=== PATIENT | female | born 1970 | race Caucasian/White ===

== ENCOUNTER → 2018-12-28 12:16 | Outpatient (CLI) | payer OTHER, SELFPAY ==
[2018-12-28 12:50] LABS: Add Manual Diff / Slide Review NO; Basophils Absolute Auto 100 /uL (0-100); Basophils Percent Auto 1.3 % (0-2); Eosinophils Absolute Auto 200 /uL (0-450); Eosinophils Percent Auto 3.5 % (2-4); Hematocrit 35.1 % (36-46); Hemoglobin 10.8 g/dL (12.0-16.0); Lymphocytes Absolute Auto 2100 /uL (1100-4500); Lymphocytes Percent Auto 33.3 % (25-40); Mean Corpuscular HGB Conc 30.8 % (30-36); Mean Corpuscular Hemoglobin 23.1 PG (26-34); Monocytes Absolute Auto 500 /uL (0-900); Monocytes Percent Auto 7.7 % (3-14); Neutrophils Absolute Auto 3500 /uL (1500-7000); Neutrophils Percent Auto 54.2 % (50-75); Platelet Count 350 X10^3/uL (150-400); Red Blood Cell Count 4.69 X10^6/uL (4.0-5.2); Red Cell Distribution Width 15.4 % (11.6-14.8); White Blood Cell Count 6.4 X10^3/uL (4.5-11.0)
[2018-12-28 13:42] LABS: Alanine Aminotransferase 12 IU/L (9-52); Albumin 4.4 g/dL (3.5-5.0); Albumin Globulin Ratio 1.3 (1.0-2.8); Alkaline Phosphatase 76 U/L (38-126); Aspartate Aminotransferase 21 IU/L (14-36); Bilirubin Total 0.4 mg/dL (0.2-1.3); Blood Urea Nitrogen 14 mg/dL (7-17); Carbon Dioxide 27 mmol/L (22-32); Chloride 104 mmol/L (98-107); Cholesterol 188 mg/dL (140-199); Estimated Glomerular Filt Rate > 60.0 mL/min (>60); Globulin 3.5 g/dL (1.7-4.1); Glucose 91 mg/dL (70-100); HDL Cholesterol 41 mg/dL (40-60); HEMOLYSIS < 15 (0-50); LDL Cholesterol Calculated 113 mg/dL (<100); Potassium 4.6 mmol/L (3.4-5.1); Sodium 141 mmol/L (137-145); Total Protein 7.9 g/dL (6.3-8.2); Triglycerides 172 mg/dL (35-150)
[2018-12-28 13:59] LABS: TSH w/ Reflex to FT4 0.66 uIU/mL (0.47-4.68)
== END ==
PROVIDERS: PCP Family Medicine; Visit Provider Family Medicine
DX: Z00.00 Encounter for general adult medical examination without abnormal findings (principal); Z13.220 Encounter for screening for lipoid disorders; Z13.29 Encounter for screening for other suspected endocrine disorder; Z13.6 Encounter for screening for cardiovascular disorders
CPT/HCPCS: 36415; 80053; 80061; 84443; 85025

== ENCOUNTER → 2020-04-25 14:46 | Outpatient (CLI) | payer OTHER, SELFPAY ==
--- NOTE | 2020-04-25 14:47 | DI.US.S_ITS ---
LIMITED ULTRASOUND OF RIGHT BREAST AND AXILLA: 04/25/2020 CLINICAL: Patient returns today to evaluate a focal asymmetry in the right breast. Comparison is made to exams dated: 04/25/2020 mammogram, 09/06/2017 ultrasound biopsy, 09/06/2017 mammogram, and 08/23/2017 ultrasound [facility]. Color flow and real-time ultrasound of the right breast 9-11 o'clock, and axilla regions were performed on the areas of interest. There is a 1.9 cm x 1 cm x 1.5 cm oval mass with a circumscribed margin in the right breast at 10 o'clock posterior depth. This oval mass is hypoechoic. This correlates as palpated. There are related calcifications. Color flow imaging demonstrates that there is vascularity present. There also is a 0.5 cm x 0.5 cm x 0.4 cm oval cyst in the right breast at 10 o'clock posterior depth. This oval cyst is hypoechoic with a well-defined boundary, internal echoes, and posterior acoustic enhancement. Color flow imaging demonstrates that there is no vascularity present. No significant abnormalities were seen sonographically in the right axilla. IMPRESSION: SUSPICIOUS OF MALIGNANCY The 1.9 cm x 1 cm x 1.5 cm oval mass in the right breast at 10 o'clock posterior depth is suspicious of malignancy. An ultrasound guided biopsy is recommended. The 0.5 cm x 0.5 cm x 0.4 cm oval cyst in the right breast at 10 o'clock posterior depth is consistent with a complicated cyst and is probably benign. A follow-up ultrasound in 6 months is recommended. The findings were discussed with the patient at the conclusion of the study by Dr. Gaviria. This exam was interpreted at Station ID: [id number]. Electronically Signed By: Garth morel/:04/25/2020 16:45:24 letter sent: Biopsy Required Ultrasound BI-RADS: 4 Suspicious for malignancy
--- NOTE | 2020-04-25 14:47 | DI.MG.S_ITS ---
BILATERAL DIGITAL DIAGNOSTIC MAMMOGRAM 3D/2D: 04/25/2020 CLINICAL: Right breast lump. Comparison is made to exams dated: 09/06/2017 mammogram, 08/23/2017 mammogram, and 07/16/2010 mammogram - [facility]. The tissue of both breasts is extremely dense, which lowers the sensitivity of mammography. There is a 0.7 cm oval equal density asymmetry with an obscured and circumscribed margin in the right breast at 11 o'clock posterior depth. This correlates as palpated. No other significant masses, calcifications, or other findings are seen in either breast. IMPRESSION: INCOMPLETE: NEEDS ADDITIONAL IMAGING EVALUATION The 0.7 cm oval equal density asymmetry in the right breast is indeterminate. An ultrasound is recommended. Ultrasound will be performed immediately following the current exam. This exam was interpreted at Station ID: [id number]. NOTE: For mammograms, a report in lay terms will be sent to the patient. Approximately 15% of breast malignancies will not be visualized mammographically. In the management of a palpable breast mass, a negative mammogram must not discourage biopsy of a clinically suspicious lesion. Electronically Signed By: Garth Banda M.D. ddp/:04/25/2020 15:48:50 ACR BI-RADS Category 0: Incomplete [id number]
== END ==
PROVIDERS: PCP Family Medicine; Referring Provider Family Medicine; Visit Provider Family Medicine
DX: R92.8 Other abnormal and inconclusive findings on diagnostic imaging of breast (principal); N63.11 Unspecified lump in the right breast, upper outer quadrant; N60.01 Solitary cyst of right breast
CPT/HCPCS: 76642; 77066; G0279

== ENCOUNTER → 2020-05-09 08:58 | Outpatient (CLI) | payer OTHER, SELFPAY ==
--- NOTE | 2020-05-09 | DI.MG.S_ITS ---
UNILATERAL RIGHT DIGITAL DIAGNOSTIC MAMMOGRAM POST-PROCEDURE IMAGING FOR MARKER PLACEMENT: 05/09/2020 CLINICAL: Right post clip. Comparison is made to exams dated: 04/25/2020 mammogram, 09/06/2017 mammogram, and 08/23/2017 mammogram - [facility]. The tissue of right breast is extremely dense, which lowers the sensitivity of mammography. There is a marker clip in the appropriate position in the right breast at 10 o'clock . This marker clip placement is at the biopsy site. IMPRESSION: POST PROCEDURE MAMMOGRAM FOR MARKER PLACEMENT There was a successful marker clip placement in the right breast Future imaging is recommended as follows: 10/23/2020 follow-up right ultrasound. This exam was interpreted at Station ID: [id number]. NOTE: For mammograms, a report in lay terms will be sent to the patient. Approximately 15% of breast malignancies will not be visualized mammographically. In the management of a palpable breast mass, a negative mammogram must not discourage biopsy of a clinically suspicious lesion. Electronically Signed By: Senthil diaz/:05/09/2020 12:07:24 ACR BI-RADS Category Post-procedure mammogram for marker placement
--- NOTE | 2020-05-09 | PATH_ITS ---
[facility] Accession Number: [id number] . 01 Material submitted: . breast - RT BREAST MASS BIOPSY 10:00, 10 CM FN . 01 Clinical history: . RIGHT BREAST MASS . 01 Diagnosis: Right Breast Mass, 10 o'clock, 10 cm from Nipple, Biopsy: Invasive (ductal) carcinoma, grade 3 of 3 ([place] combined histologic grade, total score 8/9), with the following features: 1. Nuclear pleomorphism: High. (3/3) 2. Mitotic rate: Intermediate. (2/3) 3. Tubular differentiation: Little or none. (3/3) 4. Size of invasive carcinoma: Present on six fragmented cores, single largest dimension at least 1.2 cm in this sample. 5. Ductal carcinoma in situ: Present, with the following features: - Nuclear grade: High. - Necrosis: Not identified. 6. Calcifications: Present, in association with invasive carcinoma and in situ carcinoma. 7. Lymphatic invasion: Not definitively identified. 8. Prognostic markers: - Estrogen receptor status: Positive (95% tumor cells staining, staining intensity: Strong). - Progesterone receptor status: Positive (80% tumor cells staining, staining intensity: Moderate to Strong). - HER2 status: Equivocal for protein overexpression by immunohistochemistry (2+); FISH studies are pending, and the results will be reported in an addendum. . COMMENT: Perineural invasion is present. [facility] 05/14/2020 0527 Local . 01 Electronically signed: . Lyla Cunningham MD, Pathologist NPI- [id number] . 01 Gross description: . Received one formalin-filled container, labeled with the patient's name and labeled RT breast mass 10 o'clock 10 cm FN. The specimen is received with a plastic filter in container, sample loose in container and consists of multiple yellow-franco to franco-caba, cylindrical-shaped, rough portions of tissue which range in size from 0.2 x 0.2 x 0.2 cm to 0.9 x 0.3 x 0.2 cm. All fragments are totally submitted in one cassette. No collection date or time per container. Possible collection date and time per requisition: 05/09/20 at 10:31. Possible total fixation time: Approximately 39 hours. ([id number]) /[facility] 05/10/2020 [facility] . 01 Microscopic: . A panel of immunostains are performed on block A1 in order to assess the the poorly differentiated carcinoma, with appropriately staining external controls. The invasive carcinoma shows the following immunoprofile: . JOANN-3: Diffusely positive. Mammaglobin: Negative. GCDFP-15: Negative. D2-40: No definitive/strong staining around areas of interest. P63: Negative around invasive carcinoma and positive around in situ carcinoma. Smooth muscle myosin: Negative around invasive carcinoma and positive around in situ carcinoma. . Predictive marker immunohistochemical studies are performed on block A1 with the invasive carcinoma showing the following results: . Estrogen receptor (SP1): Positive (95% tumor cells staining, staining intensity: strong). Progesterone receptor (1E2): Positive (80% tumor cells staining, staining intensity: moderate to strong). Her2 (4B5): Equivocal for protein overexpression by immunohistochemistry (2+); FISH studies pending, and the results will be reported in an addendum. . The scoring criteria for breast biomarkers by immunohistochemistry is based on the ASCO/CAP guidelines (Meredith AC et al, J Clin Oncol: 2018 Dec 27;36(20):3927-0801 and Clyde TOBAR et al, Arch Pathol Lab Med: 2009;134(6):907-22). Deparaffinized sections of formalin fixed tissue (along with appropriate positive controls) are incubated with the above antibody(s). Using the automated [place] stainer, tissue is incubated with the designated antibody which is then localized by a non-biotin, dual polymer detection system. The external controls are reviewed for appropriate reactivity and found to be adequate. Results on the target cell population are indicated above. These tests have not been validated on decalcified tissue. This test was developed and its performance characteristics determined by [employer]. It has not been cleared or approved by the U.S. Food and Drug Administration. The FDA has determined that such clearance or approval is not necessary. This test is used for clinical purposes. It should not be regarded as investigational or for research. . 01 Pathologist provided ICD-10: C50.911 . 01 CPT . 075796, T88124, X47632, 123511, 416713, 730160 Performed at: [address] [facility] [address], [place], [place] [id number] MD Garth Dominguez MD Phone: [phone]
--- NOTE | 2020-05-09 08:59 | DI.US.S_ITS ---
ULTRASOUND GUIDED BIOPSY RIGHT BREAST USING VACUUM DEVICE WITH MARKING DEVICE INSERTED: 05/09/2020 CLINICAL: Right breast mass biopsy.. PATIENT CONSENT: Risks (minor bleeding, infection, vasovagal reaction and repeat procedure), benefits and alternatives were explained to the patient and written informed consent was obtained. Correlation is made to exams dated: 05/09/2020 mammogram, 04/25/2020 ultrasound, 04/25/2020 mammogram, 09/06/2017 ultrasound biopsy, 09/06/2017 mammogram, and 08/23/2017 [facility]. An ultrasound guided biopsy using real-time ultrasound was performed for the mass located in the right breast at 10 o'clock The skin was prepped in the usual manner. Local anesthetic was administered to the access site. A small incision was made in the breast. The abnormality was approached from the lateral aspect. A biopsy needle was placed adjacent to the abnormality under ultrasound guidance. Once the needle was documented to be in the correct location, six specimens were obtained using the Mammotome biopsy system. The patient received additional local anesthetic during the procedure. A clip was inserted into the biopsy cavity. The specimens were sent to the laboratory for pathological analysis. IMPRESSION: ULTRASOUND GUIDED BIOPSY MALIGNANT Ultrasound guided biopsy of the mass in the right breast at 10 o'clock posterior depth was successful. Pathology indicates malignant invasive ductal carcinoma and ductal carcinoma in situ (DCIS). Pathology results are concordant with imaging findings. A surgical/oncologic consultation is recommended. Addtionally, a follow-up right ultrasound in 6 months is recommended to demonstrate stability of a separate abnormality previously described as a probably benign complicated cyst in the right breast 10 o'clock position posterior depth measuring 0.5cm. This exam was interpreted at Station ID: [id number]. Senthil diaz,aty/:05/21/2020 17:56:38
== END ==
PROVIDERS: PCP Family Medicine; Referring Provider Family Medicine; Visit Provider Family Medicine
DX: R92.8 Other abnormal and inconclusive findings on diagnostic imaging of breast (principal); N36.0 Urethral fistula
CPT/HCPCS: 19083; 77065

== ENCOUNTER → 2020-06-05 12:07 | Outpatient (CLI) | payer OTHER, SELFPAY ==
[2020-06-05 12:34] LABS: COVID19 -Nasal RAPID Negative (Negative)
--- NOTE | 2020-07-17 13:26 | ONC.MSW ---
Description: New Referral Navigation T/C Activity: Called pt to confirm that we've received her referral, assessed acuity and medical status. CONTENT CHECKER explained the role of navigation, and the ongoing availability of assistance, support, and resource referrals. Pt had her biopsy and surgery at the [facility] with Dr. Girard, states that she is doing well in her recovery. Confirmed a new consult appt. time for 07/30 at 11:00am. No further immediate needs are indicated at this time.
== END ==
PROVIDERS: PCP Family Medicine; Visit Provider Family Medicine
DX: R50.9 Fever, unspecified (principal); Z20.828 Contact with and (suspected) exposure to other viral communicable diseases
CPT/HCPCS: 87635

== ENCOUNTER → 2020-09-01 13:13 | Outpatient (CLI) | payer OTHER, SELFPAY ==
--- NOTE | 2020-09-01 | DI.RAD.S_ITS ---
PROCEDURE: FL GUIDED PICC PLACEMENT INDICATIONS: Need line for chemotherapy COMPARISON: None. FINDINGS: PICC was placed by the intravenous therapy team from the left side. Fluoroscopic spot film demonstrates the tip of PICC projecting to the area of mid SVC. IMPRESSION: Tip of PICC projects to the area of mid SVC. Dictated by: Senthil Gaviria M.D. on 09/01/2020 at 14:16 Approved by: Senthil Gaviria M.D. on 09/01/2020 at 14:17
== END ==
PROVIDERS: PCP Family Medicine; Referring Provider Internal Medicine; Visit Provider Internal Medicine
DX: Z45.2 Encounter for adjustment and management of vascular access device (principal)
CPT/HCPCS: 36573

== ENCOUNTER → 2020-09-02 12:45 | Outpatient (CLI) | payer OTHER, SELFPAY ==
--- NOTE | 2020-09-02 12:47 | DI.RAD.S_ITS ---
PROCEDURE: XR CHEST 2V INDICATIONS: Check PICC placement TECHNIQUE: 2 views of the chest were acquired. COMPARISON: [facility], , CHEST 1 VIEW, 08/30/2007, 2:22. FINDINGS: Surgical changes and devices: There is a left PICC line with the tip projecting to the distal area of SVC. There are surgical clips in the right breast and axilla. Lungs and pleura: Lungs are clear. No pleural effusions or pneumothorax. Mediastinum: Mediastinal contours are normal. Heart size is normal. Bones and chest wall: No suspicious bony abnormalities. Soft tissues appear unremarkable. IMPRESSION: The tip of the left PICC is in the area of distal SVC. Dictated by: Raul Georges M.D. on 09/02/2020 at 13:50 Approved by: Raul Georges M.D. on 09/02/2020 at 13:51
== END ==
PROVIDERS: PCP Family Medicine; Referring Provider Internal Medicine; Visit Provider Internal Medicine
DX: Z45.2 Encounter for adjustment and management of vascular access device (principal); C50.911 Malignant neoplasm of unspecified site of right female breast
CPT/HCPCS: 71046

== ENCOUNTER → 2021-01-07 12:30 | Outpatient (CLI) | payer OTHER, SELFPAY ==
[2021-01-07 13:01] LABS: Add Manual Diff / Slide Review NO; Basophils Absolute Auto 0 /uL (0-100); Basophils Percent Auto 1.1 % (0-2); Eosinophils Absolute Auto 100 /uL (0-450); Eosinophils Percent Auto 4.1 % (2-4); Hematocrit 40.5 % (36-46); Hemoglobin 13.3 g/dL (12.0-16.0); Lymphocytes Absolute Auto 700 /uL (1100-4500); Lymphocytes Percent Auto 22.4 % (25-40); Mean Corpuscular HGB Conc 32.8 % (30-36); Mean Corpuscular Hemoglobin 28.1 PG (26-34); Mean Corpuscular Volume 85.7 fL (80-100); Monocytes Absolute Auto 300 /uL (0-900); Monocytes Percent Auto 10.2 % (3-14); Neutrophils Absolute Auto 2000 /uL (1500-7000); Neutrophils Percent Auto 62.2 % (50-75); Platelet Count 212 X10^3/uL (150-400); Red Blood Cell Count 4.73 X10^6/uL (4.0-5.2); Red Cell Distribution Width 16.6 % (11.6-14.8); White Blood Cell Count 3.3 X10^3/uL (4.5-11.0)
[2021-01-07 13:10] LABS: Alanine Aminotransferase 24 IU/L (<35); Albumin 4.5 g/dL (3.5-5.0); Albumin Globulin Ratio 1.2 (1.0-2.8); Alkaline Phosphatase 85 U/L (38-126); Aspartate Aminotransferase 29 IU/L (14-36); BUN Creatinine Ratio 19.7 (6-22); Bilirubin Total 0.3 mg/dL (0.2-1.3); Blood Urea Nitrogen 13 mg/dL (7-17); Calcium 9.8 mg/dL (8.4-10.2); Carbon Dioxide 27 mmol/L (22-32); Chloride 104 mmol/L (98-107); Estimated Glomerular Filt Rate > 60.0 mL/min (>60); Globulin 3.8 g/dL (1.7-4.1); Glucose 88 mg/dL (70-100); HEMOLYSIS < 15 (0-50); Potassium 4.3 mmol/L (3.4-5.1); Sodium 140 mmol/L (137-145); Total Protein 8.3 g/dL (6.3-8.2)
[2021-01-07 13:11] LABS: HEMOLYSIS 22 (0-50); Iron 69 ug/dL (37-170)
[2021-01-07 13:21] LABS: Percent Iron Saturation 16 % (15-50); Total Iron Binding Capacity 427 ug/dL (265-497); Transferrin 331 mg/dL (206-381)
[2021-01-07 13:35] LABS: Ferritin 12 ng/mL (11-264)
[2021-01-07 14:17] LABS: TSH w/ Reflex to FT4 0.64 uIU/mL (0.47-4.68)
[2021-01-11 13:33] LABS: Estradiol, Sensitive 7.9 pg/mL (.)
== END ==
PROVIDERS: PCP Family Medicine; Referring Provider Internal Medicine; Visit Provider Internal Medicine
DX: C50.411 Malignant neoplasm of upper-outer quadrant of right female breast (principal); Z17.0 Estrogen receptor positive status [ER+]; D50.9 Iron deficiency anemia, unspecified; C50.911 Malignant neoplasm of unspecified site of right female breast
CPT/HCPCS: 36415; 80053; 82670; 82728; 83001; 83002; 83540; 83550; 84443; 85025

== ENCOUNTER → 2021-03-18 09:01 | Outpatient (CLI) | payer OTHER, SELFPAY ==
--- NOTE | 2021-03-18 09:02 | DI.US.S_ITS ---
ULTRASOUND OF RIGHT BREAST: 03/18/2021 CLINICAL: Palpable right breast lump. Comparison is made to exams dated: 03/18/2021 mammogram, 05/09/2020 ultrasound biopsy, 05/09/2020 mammogram, 04/25/2020 ultrasound, 04/25/2020 mammogram, and 09/06/2017 ultrasound biopsy - [facility]. Color flow ultrasound of the right breast was performed. [place] scale images of the real-time examination were reviewed. No abnormality which corresponds with the palpable abnormality is seen. IMPRESSION: NEGATIVE There is no sonographic evidence of malignancy. There are no abnormalities seen in the right breast to correspond with the areas of clinical concern and palpable abnormalities at 9 and 10 o'clock, however, clinical followup is recommended. A 1 year screening mammogram is recommended. This exam was interpreted at Station ID: [id number]. Electronically Signed By: Al Quezada acr/:03/18/2021 14:26:38 letter sent: Clinical Evaluation Ultrasound BI-RADS: 1 Negative
--- NOTE | 2021-03-18 09:02 | DI.MG.S_ITS ---
BILATERAL DIGITAL DIAGNOSTIC MAMMOGRAM 3D/2D: 03/18/2021 CLINICAL: Breast lump Breast cancer. Comparison is made to exams dated: 05/09/2020 mammogram, 04/25/2020 mammogram, 09/06/2017 mammogram, 08/23/2017 mammogram, and 07/16/2010 mammogram - [facility]. The tissue of both breasts is extremely dense, which lowers the sensitivity of mammography. There is a post-surgical scar in the right breast at 10 o'clock middle depth. No mass is identified. No abnormality which corresponds with the palpable abnormality is seen. No other significant masses, calcifications, or other findings are seen in either breast. IMPRESSION: INCOMPLETE: NEEDS ADDITIONAL IMAGING EVALUATION The post-surgical scar in the right breast is indeterminate. An ultrasound is recommended. US will be performed and dictated separately. This exam was interpreted at Station ID: [id number]. NOTE: For mammograms, a report in lay terms will be sent to the patient. Approximately 15% of breast malignancies will not be visualized mammographically. In the management of a palpable breast mass, a negative mammogram must not discourage biopsy of a clinically suspicious lesion. Electronically Signed By: Al Quezada acr/:03/18/2021 10:54:38 Entry: - 03/19/2021 07:46:02 ACR BI-RADS Category 0: Incomplete [id number]
== END ==
PROVIDERS: PCP Family Medicine; Referring Provider Internal Medicine Medical Oncology; Visit Provider Internal Medicine Medical Oncology
DX: R92.8 Other abnormal and inconclusive findings on diagnostic imaging of breast; C50.411 Malignant neoplasm of upper-outer quadrant of right female breast; N63.11 Unspecified lump in the right breast, upper outer quadrant
CPT/HCPCS: 76642; 77066; G0279

== ENCOUNTER → 2021-06-23 11:00 | Outpatient (CLI) | payer OTHER, SELFPAY ==
[2021-06-23 13:01] LABS: Cholesterol 216 mg/dL (140-199); HDL Cholesterol 50 mg/dL (40-60); LDL Cholesterol Calculated 135 mg/dL (<100); Triglycerides 154 mg/dL (35-150)
[2021-06-23 13:27] LABS: Thyroid Stimulating Hormone 0.759 uIU/mL (0.47-4.68)
== END ==
PROVIDERS: PCP Family Medicine; Referring Provider Physician Assistant; Visit Provider Physician Assistant
DX: I10 Essential (primary) hypertension (principal); R63.5 Abnormal weight gain; Z13.220 Encounter for screening for lipoid disorders; Z13.6 Encounter for screening for cardiovascular disorders
CPT/HCPCS: 36415; 80061; 84443

== ENCOUNTER → 2022-05-27 11:52 | Outpatient (CLI) | payer OTHER, SELFPAY ==
[2022-05-27 13:17] LABS: Alanine Aminotransferase 22 IU/L (<35); Albumin 4.8 g/dL (3.5-5.0); Albumin Globulin Ratio 1.3 (1.0-2.8); Alkaline Phosphatase 103 U/L (38-126); Aspartate Aminotransferase 29 IU/L (14-36); BUN Creatinine Ratio 20.6 (6-22); Bilirubin Total 0.5 mg/dL (0.2-1.3); Blood Urea Nitrogen 13 mg/dL (7-17); Calcium 9.4 mg/dL (8.4-10.2); Carbon Dioxide 30 mmol/L (22-32); Chloride 101 mmol/L (98-107); Cholesterol 231 mg/dL (140-199); Estimated Glomerular Filt Rate > 60 mL/min (>60); Globulin 3.7 g/dL (1.7-4.1); Glucose 88 mg/dL (70-100); HDL Cholesterol 57 mg/dL (40-60); HEMOLYSIS < 15 (0-50); LDL Cholesterol Calculated 145 mg/dL (<100); Sodium 140 mmol/L (137-145); Total Protein 8.5 g/dL (6.3-8.2); Triglycerides 146 mg/dL (35-150)
[2022-05-27 13:46] LABS: TSH w/ Reflex to FT4 0.87 uIU/mL (0.47-4.68)
== END ==
PROVIDERS: PCP Family Medicine; Referring Provider Physician Assistant; Visit Provider Physician Assistant
DX: E78.5 Hyperlipidemia, unspecified (principal); I10 Essential (primary) hypertension; R10.11 Right upper quadrant pain; R23.2 Flushing
CPT/HCPCS: 36415; 80053; 80061; 84443

== ENCOUNTER → 2022-06-17 10:35 | Outpatient (CLI) | payer OTHER, SELFPAY ==
--- NOTE | 2022-06-17 | DI.MG.S_ITS ---
BILATERAL DIGITAL SCREENING MAMMOGRAM 3D/2D WITH CAD: 06/17/2022 CLINICAL: Routine screening. Comparison is made to exams dated: 03/18/2021 mammogram, 05/09/2020 mammogram, 04/25/2020 mammogram, and 09/06/2017 mammogram - [facility]. Both breasts are extremely dense, which lowers the sensitivity of mammography (category d />75% glandular tissue). Current study was also evaluated with a Computer Aided Detection (CAD) system. No significant masses, calcifications, or other findings are seen in either breast. There has been no significant interval change. IMPRESSION: NEGATIVE There is no mammographic evidence of malignancy. A 1 year screening mammogram is recommended. This exam was interpreted at Station ID: [id number]. NOTE: For mammograms, a report in lay terms will be sent to the patient. Approximately 15% of breast malignancies will not be visualized mammographically. In the management of a palpable breast mass, a negative mammogram must not discourage biopsy of a clinically suspicious lesion. Electronically Signed By: Liang Rincon M.D., jr/yaniv:06/17/2022 12:57:26 letter sent: Normal Exam ACR BI-RADS Category 1: Negative [id number]
--- NOTE | 2022-06-17 10:36 | DI.US.S_ITS ---
PROCEDURE: US ABDOMEN COMPLETE INDICATIONS: RUQ pain; persistent reflux no relief with PPI TECHNIQUE: Real-time scanning was performed of the abdominal and retroperitoneal organs, with image documentation. COMPARISON: [facility], US, ABDOMEN COMPLETE, 08/19/2006, 12:57. FINDINGS: Liver: Liver is normal in size . Mildly increased liver parenchymal echotexture is seen. No discrete hepatic lesion. Gallbladder: There is no gallstone. No gallbladder wall thickening or pericholecystic fluid. No sonographic Guzmán's sign. Biliary ducts: Intrahepatic bile ducts are non-dilated. Extrahepatic bile duct caliber measures 3 mm. Normal is 6-7 mm or less in diameter, or 10 mm or less post-cholecystectomy. Pancreas: Visualized portions of the pancreas are sonographically normal. Spleen: Spleen is normal in size and homogeneous in echotexture. Kidneys: Kidneys are normal in size and echotexture. Right kidney measures 10.3 cm long; left kidney measures 11.4 cm long. No hydronephrosis or nephrolithiasis. No solid masses. Aorta: Visualized aorta is normal in caliber at less than 3 cm. Iliacs: Proximal common iliac arteries are normal in caliber at less than 2.5 cm. IVC: Intrahepatic inferior vena cava is patent. Miscellaneous: No free abdominal fluid. IMPRESSION: 1. Mild hepatic steatosis. No discrete hepatic lesion. 2. Normal appearing gallbladder. No biliary ductal dilatation. 3. Rest of the exam is unremarkable. Dictated by: Artem Perera M.D. on 06/17/2022 at 12:12 Approved by: Artem Perera M.D. on 06/17/2022 at 12:13
== END ==
PROVIDERS: PCP Family Medicine; Referring Provider Family Medicine; Visit Provider Family Medicine
DX: Z12.31 Encounter for screening mammogram for malignant neoplasm of breast (principal); K76.0 Fatty (change of) liver, not elsewhere classified; R10.11 Right upper quadrant pain; K21.9 Gastro-esophageal reflux disease without esophagitis
CPT/HCPCS: 76700; 77063; 77067

== ENCOUNTER → 2022-07-12 12:29 | Outpatient (CLI) | payer OTHER, SELFPAY ==
[2022-07-13 07:37] LABS: Fecal Immunochemical Test Negative (Negative)
== END ==
PROVIDERS: PCP Family Medicine; Referring Provider Physician Assistant; Visit Provider Physician Assistant
DX: Z12.11 Encounter for screening for malignant neoplasm of colon (principal); Z12.12 Encounter for screening for malignant neoplasm of rectum
CPT/HCPCS: 82274

== ENCOUNTER → 2022-07-26 07:38 | Outpatient (CLI) | payer OTHER, SELFPAY ==
--- NOTE | 2022-07-26 07:41 | DI.NM.S_ITS ---
PROCEDURE: NM HIDA WITH CCK PHARMACEUTICAL: 5.4 mCi Tc-99m mebrofenin IV; 1.5 mcg CCK IV. INDICATIONS: RUQ, persistent reflux TECHNIQUE: Following intravenous administration of Tc-99m mebrofenin, sequential anterior abdominal images were obtained. To evaluate the contractile response of the gallbladder in response to Cholecystokinin (CCK), sincalide (0.02 ?g/kg) was administered by slow intravenous infusion approximately 60 minutes after the administration of the radiopharmaceutical. Sequential imaging was continued for 30 minutes after the start of CCK infusion. Gallbladder ejection fraction was calculated. COMPARISON: [facility], , US ABDOMEN COMPLETE, 06/17/2022, 11:21. FINDINGS: Biliary scan: There is normal tracer uptake and excretion by the liver. There is normal visualization of the intrahepatic ducts, common bile duct, and gallbladder. There is normal tracer transit into the duodenum. Note is made of bile reflux into the stomach. CCK stimulation: There is poor contractile response of the gallbladder to CCK infusion. The calculated gallbladder ejection fraction is 20%; normal values are above 35%. IMPRESSION: 1. Normal filling of gallbladder. No evidence for acute cholecystitis. 2. Poor contractile response of gallbladder to CCK stimulation, suggesting gallbladder dyskinesia. 3. There is bile reflux into the stomach. Dictated by: Raul Georges M.D. on 07/26/2022 at 10:58 Approved by: Raul Georges M.D. on 07/26/2022 at 11:00
== END ==
PROVIDERS: PCP Family Medicine; Referring Provider Physician Assistant; Visit Provider Physician Assistant
DX: K21.9 Gastro-esophageal reflux disease without esophagitis (principal)
CPT/HCPCS: 78227; A9537; J2805

== ENCOUNTER 2022-09-09 12:52 | Day surgery (SDC) | payer OTHER, SELFPAY ==
--- NOTE | 2022-09-09 | PATH_ITS ---
[facility] Accession Number: [id number] No. of containers..02 Tissue . 01 Material submitted: . PART A: stomach - ANTRUM PART B: stomach - STOMACH BODY . 01 Diagnosis: A. Antrum, Biopsy: Gastric mucosa with minimal chronic nonspecific inflammation. No Helicobacter pylori organisms identified on immunohistochemical evaluation. No intestinal metaplasia, dysplasia or malignancy identified. . B. Stomach Body, Biopsy: Gastric mucosa with no significant diagnostic alterations. No Helicobacter pylori organisms identified on H/E slide. No intestinal metaplasia, dysplasia, or malignancy. [facility] 09/14/2022 1140 Local . 01 Electronically signed: . Anca Chavez MD, Pathologist NPI- [id number] . 01 Gross description: . Part A: ANTRUM: Received in formalin are 3 fragment(s) of caba, soft tissue measuring 0.2 x 0.2 x 0.1 cm to 0.3 x 0.3 x 0.2 cm submitted entirely in 1 cassette(s) Part B: STOMACH BODY: Received in formalin are 2 fragment(s) of caba, soft tissue measuring 0.1 x 0.1 x 0.1 cm to 0.4 x 0.2 x 0.2 cm submitted entirely in 1 cassette(s) /[facility] 09/10/2022 1911 Local . 01 Microscopic: . A. An immunohistochemical stain was performed to evaluate for Helicobacter organisms and is negative. The control stain showed appropriate reactivity. . 01 Pathologist provided ICD-10: K29.30 . 01 CPT . 326188, 841701, M09171 Specimen Comment: A courtesy copy of this report has been sent to [phone] Performed at: 01 [facility] [address] [id number] MD Garth Dominguez MD Phone: [phone]
[2022-09-09 13:41] VITALS: BP 171/99; PULSE 101; RESP 16; TEMP 36.9; O2SAT 98; BMI 28.3
[2022-09-09] MEDS: LACTATED RINGERS 1,000 ML 84 ML IV (13:53)
--- NOTE | 2022-09-09 14:07 | PM.HP.1 ---
History of Present Illness History of Present Illness Date Patient Seen: 09/09/22 Time Patient Seen: 14:07 Chief complaint: EGD/Screening Colonoscopy Narrative: Yoli is here for her procedure. See the office note from July for details. She has been feeling better since then. Patient History Medical History Breast cancer, right Family & Social History Family History Father Age: 79 Parkinson disease Skin cancer Atrial fibrillation Hypertension Grandfather Hypertension Stroke Mother Age: 76 Dementia Heart disease Hypertension High cholesterol Stroke Grandmother Heart disease Hypertension Social History: household members spouse Tobacco & Substance use: Smoking Status Never smoker alcohol intake current alcohol intake frequency a few times a week Substance Use Type does not use Meds Home Medications and Allergies Home Medications Medication Instructions Recorded Confirmed Type acetaminophen 325 mg tablet 325 mg PRN PRN Pain (Scale Score 07/30/20 09/09/22 History (Tylenol) 4-6) loratadine 10 mg tablet (Claritin) 10 mg PO DAILY 09/02/20 09/09/22 History Bacillus coagulans 250 million 250 cell PO DAILY 12/08/20 09/09/22 History cell chewable tablet (Probiotic (B. coagulans)) multivit with 1 tab PO DAILY 12/08/20 09/02/22 History cpgquukl-ekiu-NR-lutein 8 mg iron-400 mcg-300 mcg tablet (Centrum Silver Women) cholecalciferol (vitamin D3) 125 125 mcg PO DAILY 02/02/21 09/09/22 History mcg (5,000 unit) capsule docusate sodium 100 mg capsule 100 mg PO DAILY PRN constipation 02/02/21 09/02/22 History (Col-Rite) zoledronic acid 4 mg intravenous mg IV 06/10/21 09/02/22 History solution letrozole 2.5 mg tablet 2.5 mg PO DAILY #30 tabs 07/07/22 09/09/22 Rx sodium sul 1.479 gram-potas ch See Rx Instructions PO PER PKG DIR 08/17/22 09/02/22 Rx 0.188 gram-magnes sul 0.225 gram #24 tabs tablet (Sutab) Allergies Allergy/AdvReac Type Severity Reaction Status Date / Time codeine [CODEINE] Allergy Mild Verified 09/09/22 13:36 oxycodone [OXYCODONE] Allergy Mild Verified 09/09/22 13:36 Penicillins [PENICILLINS] Allergy Mild Verified 09/09/22 13:36 benazepril AdvReac Intermediate severe Verified 09/09/22 13:36 cough valsartan AdvReac Intermediate muscle Verified 09/09/22 13:36 aches; body aches amlodipine AdvReac Mild Cough Verified 09/09/22 13:55 Exam Vital Signs (past 8 hours): - 09/09/22 13:41 Temperature 98.4 F Pulse Rate 101 H Respiratory Rate 16 Blood Pressure 171/99 H Pulse Oximetry 98 Oxygen Delivery Method Room Air Oxygen Delivery Method Room Air Const General: well groomed and No acute distress Assessment & Plan Assessment and plan (1) Epigastric pain: Status: Resolved (2) Gastroesophageal reflux disease: Qualifiers: Esophagitis presence: without esophagitis Qualified Code(s): K21.9 - Gastro-esophageal reflux disease without esophagitis Status: None Plan Reviewed the risks and benefits of EGD and colonoscopy. She would like to proceed with EGD and colonoscopy
--- NOTE | 2022-09-09 15:16 | P.OP.EGD&C_ITS ---
Operative Date/Time/Diagnoses Date of procedure: 09/09/22 Time of procedure: 15:16 Pre-op diagnosis: Dyspepsia Post-op diagnosis: same Procedure & Clinicians Study performed: EGD and colonoscopy Same procedure as scheduled: Yes Surgeon: Guerrero Mcgee Procedure Notes Procedure in detail: Surgeon: Guerrero Mcgee MD Anesthesia: Dr. Winters Procedure in detail: A timeout was performed. A bite blocked was placed and monitors were attached to the patient. The patient was positioned in a left lat eral decubitus position. Sedation was administered. Once the patient was sedated the endoscope was inserted through the bite block and passed through the esophagus and stomach and into the duodenum. No abnormalities were seen in the duodenum or bulb. We then withdrew the scope into the stomach. There were few small shallow ulcers in the body of the stomach. Random biopsies were taken from the antrum and from the gastric body near the ulcer. The endoscope was retroflexed and no hiatal hernia was seen. The endoscope was straightned and withdrawn into the esophagus. No abnormalities were seen. Findings: Small shallow ulcers in the body of the stomach Next we repositioned the patient for a colonoscopy. A digital rectal exam was performed and was normal. The colonoscope was inserted and advanced to the cecum. The appendiceal orifice was identified and photographed. The scope was slowly withdrawn over greater than 6 minutes. No abnormalities were seen. The scope was retroflexed in the rectum and some internal hemorrhoids were seen. Findings: Internal hemorrhoids EBL: 0 Scope withdrawal time: 6 minutes Sedation minutes: 20 minutes Post-procedure Disposition: PACU
[2022-09-09 15:17] VITALS: BP 128/80; PULSE 98; RESP 14; TEMP 36.8; O2SAT 97
[2022-09-09 15:24] VITALS: BP 123/77; PULSE 94; RESP 16; O2SAT 99
[2022-09-09 15:29] VITALS: BP 131/89; PULSE 103; RESP 14; O2SAT 99
== END 2022-09-09 15:44 | disposition home or self-care (01) ==
PROVIDERS: PCP Family Medicine; Referring Provider Surgery; Visit Provider Surgery
PROC: 0DJ08ZZ Inspection of Upper Intestinal Tract, Via Natural or Artificial Opening Endoscopic (ICD-10-PCS; CPT 43235; principal; 2022-09-09 14:15)
PROC: 0DJD8ZZ Inspection of Lower Intestinal Tract, Via Natural or Artificial Opening Endoscopic (ICD-10-PCS; CPT 45378; 2022-09-09 14:15)
DX: Z12.11 Encounter for screening for malignant neoplasm of colon (principal); R10.13 Epigastric pain; K21.9 Gastro-esophageal reflux disease without esophagitis; K25.9 Gastric ulcer, unspecified as acute or chronic, without hemorrhage or perforation; K64.8 Other hemorrhoids; K29.50 Unspecified chronic gastritis without bleeding
CPT/HCPCS: 45378; 43239; J2250; J2704; J3010

== ENCOUNTER 2022-10-21 09:29 | Emergency (ER) | payer OTHER, SELFPAY ==
[2022-10-21 09:34] VITALS: BP 208/95; PULSE 98; O2SAT 99
[2022-10-21 09:37] VITALS: BP 196/86; PULSE 94; RESP 16; TEMP 36.8; O2SAT 97; BMI 28.3
--- NOTE | 2022-10-21 09:40 | ED_ITS ---
HPI - General Adult General Chief complaint: Hypertension Stated complaint: elevated blood pressure, sent by PCP Time Seen by Provider: 10/21/22 09:33 Source: patient Mode of arrival: Ambulatory Limitations: no limitations History of Present Illness HPI narrative: Patient is a 52-year-old female. Does have a history of breast cancer. She states she is ?cured? however she does receive infusions every 6 months. Her last infusion was a couple months ago. She states that she has no diagnosis of high blood pressure although her blood pressure has been more elevated since her diagnosis of breast cancer. She states that yesterday she took her blood pressure because she was generally just not feeling very well. She did have a intense conversation on the phone. She did not sleep very well last night because she had ?tingling? all over. She states that she received a call from her doctor today asking her to repeat her blood pressure and was elevated and she generally was not feeling very well so she was told to come to the emergency department. She states she is ?kind of? having chest pain. No shortness of breath. No headache. No vision changes. Related Data Home Medications Medication Instructions Recorded Confirmed acetaminophen 325 mg tablet 325 mg PRN PRN Pain (Scale Score 07/30/20 09/09/22 (Tylenol) 4-6) loratadine 10 mg tablet (Claritin) 10 mg PO DAILY 09/02/20 09/09/22 Bacillus coagulans 250 million 250 cell PO DAILY 12/08/20 09/09/22 cell chewable tablet (Probiotic (B. coagulans)) multivit with 1 tab PO DAILY 12/08/20 09/02/22 dtdoiwaj-jolp-YW-lutein 8 mg iron-400 mcg-300 mcg tablet (Centrum Silver Women) cholecalciferol (vitamin D3) 125 125 mcg PO DAILY 02/02/21 09/09/22 mcg (5,000 unit) capsule docusate sodium 100 mg capsule 100 mg PO DAILY PRN constipation 02/02/21 09/02/22 (Col-Rite) zoledronic acid 4 mg intravenous mg IV 06/10/21 09/02/22 solution Previous Rx's Medication Instructions Recorded letrozole 2.5 mg tablet 2.5 mg PO DAILY #30 tabs 07/07/22 sodium sul 1.479 gram-potas ch See Rx Instructions PO PER PKG DIR 08/17/22 0.188 gram-magnes sul 0.225 gram #24 tabs tablet (Sutab) pantoprazole 20 mg tablet,delayed 20 mg PO DAILY #90 tabs 09/20/22 release Allergies Allergy/AdvReac Type Severity Reaction Status Date / Time codeine [CODEINE] Allergy Mild Verified 10/21/22 09:41 oxycodone [OXYCODONE] Allergy Mild Verified 10/21/22 09:41 Penicillins [PENICILLINS] Allergy Mild Verified 10/21/22 09:41 benazepril AdvReac Intermediate severe Verified 10/21/22 09:41 cough valsartan AdvReac Intermediate muscle Verified 10/21/22 09:41 aches; body aches amlodipine AdvReac Mild Cough Verified 10/21/22 09:41 Review of Systems Review of Systems ROS Unobtainable: All systems reviewed & are unremarkable except as noted in HPI and below Patient History Medical History Breast cancer, right Family History Father Age: 79 Parkinson disease Skin cancer Atrial fibrillation Hypertension Grandfather Hypertension Stroke Mother Age: 76 Dementia Heart disease Hypertension High cholesterol Stroke Grandmother Heart disease Hypertension Social History marital status: household members: spouse Smoking Status: Never smoker alcohol intake: current substance use type: does not use Smoking Status: Never smoker alcohol intake frequency: a few times a week Substance Use Type: does not use Exam Initial Vital Signs Initial Vital Signs: Vital Signs Pulse Rate 98 H 10/21/22 09:34 Blood Pressure 208/95 H 10/21/22 09:34 Pulse Oximetry 99 10/21/22 09:34 Const General: cooperative, comfortable and No ill appearing HENMT Head: normal to inspection and normocephalic Resp Effort & Inspection: normal respiratory effort Auscultation: clear to auscultation bilaterally Cardio Rate: regular rate Rhythm: regular rhythm GI Inspection: normal to inspection and non-distended Skin General: no rashes or lesions noted Neuro General: patient alert, patient awake, patient oriented x3 and moves all extremities Extrem General: No edema Course Orders Ordered: ED Orders 05/04/23 09:41 XR chest 1V Stat 10/21/22 09:54 EKG-12 Lead Stat 10/21/22 10:02 Complete Blood Count AUTO DIFF Stat Comprehensive Metabolic Panel Stat Lipase Stat Troponin & CK Cardiac Panel Stat 10/21/22 10:34 Urine Microscopic Stat Vital Signs Vital signs: Vital Signs - 8 hr 10/21/22 09:37 10/21/22 09:34 10/21/22 09:34 Temperature 98.2 F Pulse Rate 94 H 98 H Respiratory Rate 16 Blood Pressure 196/86 H 208/95 H Pulse Oximetry 97 99 Oxygen Delivery Method Room Air 10/21/22 10:00 10/21/22 10:39 10/21/22 10:41 Temperature Pulse Rate 86 80 Respiratory Rate 17 Blood Pressure 139/72 Pulse Oximetry 100 Oxygen Delivery Method 10/21/22 10:41 Temperature Pulse Rate 80 Respiratory Rate 18 Blood Pressure Pulse Oximetry 98 Oxygen Delivery Method Medical Decision Making Lab Data 10/21/22 10:02 10/21/22 10:02 Labs: Lab Results 10/21/22 10/21/22 10/21/22 Range/Units 10:02 10:02 10:34 WBC 5.3 (4.5-11.0) X10^3/uL RBC 4.75 (4.0-5.2) X10^6/uL Hgb 13.6 (12.0-16.0) g/dL Hct 40.3 (36-46) % MCV 85.0 (80-100) fL MCH 28.7 (26-34) PG MCHC 33.8 (30-36) % RDW 13.1 (11.6-14.8) % Plt Count 203 (150-400) X10^3/uL Neut % (Auto) 37.3 L (50-75) % Lymph % (Auto) 50.3 H (25-40) % [place] % (Auto) 9.0 (3-14) % Eos % (Auto) 2.8 (2-4) % Baso % (Auto) 0.6 (0-2) % Neut # (Auto) 2000 (5256-7671) /uL Lymph # (Auto) 2700 (3321-7885) /uL [place] # (Auto) 500 (0-900) /uL Eos # (Auto) 100 (0-450) /uL Baso # (Auto) 0 (0-100) /uL Sodium 139 (137-145) mmol/L Potassium 3.8 (3.4-5.1) mmol/L Chloride 103 (98-107) mmol/L Carbon Dioxide 27 (22-32) mmol/L BUN 11 (7-17) mg/dL Creatinine 0.62 (0.52-1.04) mg/dL Estimated GFR > 60 (>60) mL/min BUN/Creatinine Ratio 17.7 (6-22) Glucose 90 (70-100) mg/dL Calcium 9.0 (8.4-10.2) mg/dL Total Bilirubin 0.6 (0.2-1.3) mg/dL AST 31 (14-36) IU/L ALT 25 (<35) IU/L Alkaline Phosphatase 96 (38-126) U/L Total Creatine Kinase 68 (30-135) U/L CK-MB (CK-2) TNP CK-MB (CK-2) Rel Index TNP Troponin I < 0.012 (0.01-0.034) ng/mL Total Protein 8.2 (6.3-8.2) g/dL Albumin 4.5 (3.5-5.0) g/dL Globulin 3.7 (1.7-4.1) g/dL Albumin/Globulin Ratio 1.2 (1.0-2.8) Lipase 216 (23-300) U/L Urine RBC None seen (0-5/HPF) Urine WBC None seen (0-5/HPF) Ur Squamous Epith Cells 0-1 /hpf (0-5/HPF) Urine Bacteria None seen (None) Ur Culture Indicated? Cult not indicated Point of Care Testing Test Results Negative Urine Dip Bedside Urine Glucose Negative Bedside Urine Bilirubin - Negative Bedside Urine Ketone + 15 Urine Specific [place] 1.010 Bedside Urine Occult Blood - Negative Bedside Urine pH 7.5 Bedside Urine Protein - Negative Bedside Urine Urobilinogen - Negative Bedside Urine Nitrite - Negative Bedside Urine Leukocytes +/- 15 Esterase Point of care testing: Point of Care Testing Test Results Negative Urine Dip Bedside Urine Glucose Negative Bedside Urine Bilirubin - Negative Bedside Urine Ketone + 15 Urine Specific [place] 1.010 Bedside Urine Occult Blood - Negative Bedside Urine pH 7.5 Bedside Urine Protein - Negative Bedside Urine Urobilinogen - Negative Bedside Urine Nitrite - Negative Bedside Urine Leukocytes +/- 15 Esterase Imaging Data Chest x-ray: Radiologist's Impression: PROCEDURE:? XR CHEST 1V ? INDICATIONS:? HTN ? TECHNIQUE:? One view of the chest was acquired.? ? COMPARISON:? [facility], CR, XR CHEST 2V, 09/02/2020, 12:58.? [facility], CR, CHEST 1 VIEW, 05/29/2015, 6:39. ? FINDINGS:? ? Surgical changes and devices:? None.? ? Lungs and pleura:? Lungs are clear.? No pleural effusions or pneumothorax.? ? Mediastinum:? Mediastinal contours appear normal.? Heart size is normal.? ? Bones and chest wall:? No suspicious bony lesions.? Overlying soft tissues appea r unremarkable.? ? IMPRESSION:? No acute cardiopulmonary process. ECG Data Attestation: I personally reviewed and interpreted this ECG as follows: Interpretation: Sinus rhythm Ventricular rate 80 Normal axis Normal QRS Normal QTC No ST T wave changes MDM Narrative Medical decision making narrative: Patient's workup here in the emergency department is unremarkable. No signs of intracerebral hemorrhage, CVA, ACS, heart failure acute renal failure. Patient's blood pressure did improve without specific intervention here in the ER. I had a long discussion with the patient and the patient's regarding this. We did discuss the importance of her taking her blood pressure at home and recording the results then talking with her primary doctor about potential medications. We did discuss specific return precautions. She expressed understanding and agreement with plan. Discharge Plan Departure Patient Disposition: Home Clinical Impression: Hypertension Instructions: DI for High Blood Pressure Activity Restrictions/Additional Instructions: Recommend that you continue to take all of your medications as directed. Also recommend that you contact your primary doctor for follow-up and take your blood pressure at home like we discussed. Return to the emergency department for new or worsening symptoms. Prescriptions: No Action cholecalciferol (vitamin D3) 125 mcg (5,000 unit) capsule 125 mcg PO DAILY pantoprazole 20 mg tablet,delayed release (DR/EC) 20 mg PO DAILY Qty: 90 0RF Centrum Silver Women 8 mg iron-400 mcg-300 mcg tablet 1 tab PO DAILY Probiotic (B. coagulans) 250 million cell tablet,chewable 250 cell PO DAILY Patient Comments: pro biotic docusate sodium [Col-Rite] 100 mg capsule 100 mg PO DAILY PRN (Reason: constipation) zoledronic acid 4 mg recon soln IV Rx Instructions: Q 6 months per Oncology letrozole 2.5 mg Tablet 2.5 mg PO DAILY Qty: 30 3RF Sutab 1.479-0.188- 0.225 gram tablet See Rx Instructions PO PER PKG DIR Qty: 24 0RF Rx Instructions: Take as directed by Physician acetaminophen [Tylenol] 325 mg Tablet 325 mg PRN PRN (Reason: Pain (Scale Score 4-6)) loratadine [Claritin] 10 mg Tablet 10 mg PO DAILY Referrals: Liang Rodrigues MD [Primary Care Provider] - Stand Alone Forms: Patient Portal/API
--- NOTE | 2022-10-21 09:41 | DI.RAD.S_ITS ---
PROCEDURE: XR CHEST 1V INDICATIONS: HTN TECHNIQUE: One view of the chest was acquired. COMPARISON: [facility], EBONI, XR CHEST 2V, 09/02/2020, 12:58. [facility], , CHEST 1 VIEW, 05/29/2015, 6:39. FINDINGS: Surgical changes and devices: None. Lungs and pleura: Lungs are clear. No pleural effusions or pneumothorax. Mediastinum: Mediastinal contours appear normal. Heart size is normal. Bones and chest wall: No suspicious bony lesions. Overlying soft tissues appear unremarkable. IMPRESSION: No acute cardiopulmonary process. Dictated by: Will Paredes M.D. on 10/21/2022 at 9:59 Approved by: Will Paredes M.D. on 10/21/2022 at 9:59
[2022-10-21 10:00] VITALS: PULSE 86; O2SAT 100
[2022-10-21 10:12] LABS: Add Manual Diff / Slide Review NO; Basophils Absolute Auto 0 /uL (0-100); Basophils Percent Auto 0.6 % (0-2); Eosinophils Absolute Auto 100 /uL (0-450); Eosinophils Percent Auto 2.8 % (2-4); Hematocrit 40.3 % (36-46); Hemoglobin 13.6 g/dL (12.0-16.0); Lymphocytes Absolute Auto 2700 /uL (1100-4500); Lymphocytes Percent Auto 50.3 % (25-40); Mean Corpuscular HGB Conc 33.8 % (30-36); Mean Corpuscular Hemoglobin 28.7 PG (26-34); Monocytes Absolute Auto 500 /uL (0-900); Neutrophils Absolute Auto 2000 /uL (1500-7000); Neutrophils Percent Auto 37.3 % (50-75); Platelet Count 203 X10^3/uL (150-400); Red Blood Cell Count 4.75 X10^6/uL (4.0-5.2); Red Cell Distribution Width 13.1 % (11.6-14.8); White Blood Cell Count 5.3 X10^3/uL (4.5-11.0)
[2022-10-21 10:24] LABS: Alanine Aminotransferase 25 IU/L (<35); Albumin 4.5 g/dL (3.5-5.0); Albumin Globulin Ratio 1.2 (1.0-2.8); Alkaline Phosphatase 96 U/L (38-126); Aspartate Aminotransferase 31 IU/L (14-36); BUN Creatinine Ratio 17.7 (6-22); Bilirubin Total 0.6 mg/dL (0.2-1.3); Blood Urea Nitrogen 11 mg/dL (7-17); Carbon Dioxide 27 mmol/L (22-32); Chloride 103 mmol/L (98-107); Creatine Kinase 68 U/L (30-135); Estimated Glomerular Filt Rate > 60 mL/min (>60); Globulin 3.7 g/dL (1.7-4.1); Glucose 90 mg/dL (70-100); HEMOLYSIS < 15 (0-50); Lipase 216 U/L (23-300); Potassium 3.8 mmol/L (3.4-5.1); Sodium 139 mmol/L (137-145); Total Protein 8.2 g/dL (6.3-8.2)
[2022-10-21 10:36] LABS: Troponin I < 0.012 ng/mL (0.01-0.034)
[2022-10-21 10:39] VITALS: PULSE 80; RESP 17
[2022-10-21 10:41] VITALS: BP 139/72; PULSE 80; RESP 18; O2SAT 98
[2022-10-21 11:00] VITALS: BP 148/73; PULSE 78; RESP 13; O2SAT 96
[2022-10-21 11:05] LABS: Bacteria Urine None Seen; Culture Indicated Urine Cult Not Indicated; RBC Urine None Seen (0-5/HPF); Squamous Epithelial Cell Urine 0-1 /HPF (0-5/HPF); WBC Urine None Seen (0-5/HPF)
== END 2022-10-21 11:40 | disposition home or self-care (01) ==
PROVIDERS: Emergency Provider Emergency Medicine; PCP Family Medicine
DX: I10 Essential (primary) hypertension (principal); R07.9 Chest pain, unspecified
CPT/HCPCS: 36415; 71045; 80053; 81003; 81015; 81025; 82550; 83690; 84484; 85025; 93005; 99284

== ENCOUNTER → 2022-12-23 11:54 | Outpatient (CLI) | payer OTHER, SELFPAY ==
[2022-12-23 14:01] LABS: Blood Urea Nitrogen 17 mg/dL (7-17); Calcium 9.6 mg/dL (8.4-10.2); Carbon Dioxide 33 mmol/L (22-32); Chloride 99 mmol/L (98-107); Estimated Glomerular Filt Rate > 60 mL/min (>60); Glucose 90 mg/dL (70-100); HEMOLYSIS < 15 (0-50); Potassium 4.3 mmol/L (3.4-5.1); Sodium 140 mmol/L (137-145)
== END ==
PROVIDERS: PCP Family Medicine; Referring Provider Physician Assistant; Visit Provider Physician Assistant
DX: I10 Essential (primary) hypertension (principal)
CPT/HCPCS: 36415; 80048

== ENCOUNTER → 2024-05-03 12:25 | Outpatient (CLI) | payer OTHER, SELFPAY ==
[2024-05-03 14:06] LABS: Add Manual Diff / Slide Review NO; Basophils Absolute Auto 0 /uL (0-100); Basophils Percent Auto 0.9 % (0-2); Eosinophils Absolute Auto 100 /uL (0-450); Hematocrit 41.8 % (36-46); Hemoglobin 13.9 g/dL (12.0-16.0); Lymphocytes Absolute Auto 2100 /uL (1100-4500); Lymphocytes Percent Auto 41.1 % (25-40); Mean Corpuscular HGB Conc 33.3 % (30-36); Mean Corpuscular Hemoglobin 28.4 PG (26-34); Mean Corpuscular Volume 85.5 fL (80-100); Monocytes Absolute Auto 400 /uL (0-900); Monocytes Percent Auto 6.9 % (3-14); Neutrophils Absolute Auto 2500 /uL (1500-7000); Neutrophils Percent Auto 49.1 % (50-75); Platelet Count 252 X10^3/uL (150-400); Red Blood Cell Count 4.88 X10^6/uL (4.0-5.2); Red Cell Distribution Width 13.4 % (11.6-14.8); White Blood Cell Count 5.1 X10^3/uL (4.5-11.0)
[2024-05-03 14:24] LABS: Cholesterol 222 mg/dL (140-199); HDL Cholesterol 50 mg/dL (40-60); LDL Cholesterol Calculated 144 mg/dL (<100); Triglycerides 138 mg/dL (35-150)
[2024-05-03 14:57] LABS: TSH w/ Reflex to FT4 0.34 uIU/mL (0.47-4.68)
[2024-05-03 15:34] LABS: Free T4, Direct Thyroxine 1.11 ng/dL (0.78-2.19)
== END ==
LOC: LAB 12:26
PROVIDERS: PCP Family Medicine; Referring Provider Family Medicine; Visit Provider Family Medicine
DX: M85.80 Other specified disorders of bone density and structure, unspecified site (principal); G47.33 Obstructive sleep apnea (adult) (pediatric); C50.919 Malignant neoplasm of unspecified site of unspecified female breast; Z85.3 Personal history of malignant neoplasm of breast; I10 Essential (primary) hypertension; E78.5 Hyperlipidemia, unspecified
CPT/HCPCS: 36415; 80061; 84439; 84443; 85025

== ENCOUNTER → 2024-05-07 14:01 | Outpatient (CLI) | payer OTHER, SELFPAY ==
--- NOTE | 2024-05-07 14:01 | DI.RAD.S_ITS ---
PROCEDURE: XR DEXA AXIAL SKELETON INDICATIONS: osteopenia COMPARISON: None. FINDINGS: Lumbar Spine: Bone mineral density 0.99 g/cm2, T score -0.6,. Left Hip: Bone mineral density 0.75 g/cm2, T score -1.6,. Left Femoral Neck: Bone mineral density 0.61 g/cm2, T score -2.1,. Right Hip: Bone mineral density 0.77 g/cm2, T score -1.4,. Right Femoral Neck: Bone mineral density 0.75 g/cm2, T score -0.9,. Fracture Risk Calculation (when applicable): 10-year fracture risk of a major osteoporotic fracture 7.6 percent and of a hip fracture 0.9 percent. (T score greater or equal to -1.0 to: NORMAL) (T score from -1.1 to -2.4: OSTEOPENIA) (T score less than or equal to -2.5: OSTEOPOROSIS) IMPRESSION: Osteopenia with fracture risk above. Follow-up guidelines as follows: Osteoporosis: Consider a repeat DEXA and Vertebral Fracture Assessment (VFA) exam in 2 years or sooner if medically necessary, to reassess this patient's status. Osteopenia: Consider a repeat DEXA in 2-3 years to reassess this patient's status, or if there is a new clinical indication. Normal: Consider a repeat DEXA in 5 years or sooner, or if there is a new clinical indication. All treatment decisions require clinical judgment and consideration of individual patient factors, including patient preferences, comorbidities, previous drug use, risk factors not captured in the FRAX model (e.g., frailty, falls, vitamin D deficiency, increased bone turnover, interval significant decline in bone density ) and possible under- or over-estimation of fracture risk by FRAX. In addition, the NOF Guide recommends that FDA-approved medical therapies be considered in postmenopausal women and men age >= 50 years with a: * Hip or vertebral (clinical or morphometric) fracture * T-score of <=-2.5 at the spine or hip * Ten-year fracture probability by FRAX of >= 3% for hip fracture or >=20% for major osteoporotic fracture. People with diagnosed cases of osteoporosis or at high risk for fracture should have regular bone mineral density tests. For patients eligible for Medicare, routine testing is allowed once every 2 years. The testing frequency can be increased to one year for patients who have rapidly progressing disease, those who are receiving or discontinuing medical therapy to restore bone mass, or have additional risk factors. Dictated by: lEmer Yates M.D. on 05/08/2024 at 10:18 Approved by: Elmer Yates M.D. on 05/08/2024 at 10:19
== END ==
PROVIDERS: PCP Family Medicine; Referring Provider Family Medicine; Visit Provider Family Medicine
DX: C50.919 Malignant neoplasm of unspecified site of unspecified female breast (principal); M85.89 Other specified disorders of bone density and structure, multiple sites; I10 Essential (primary) hypertension; Z85.3 Personal history of malignant neoplasm of breast
CPT/HCPCS: 77080

== ENCOUNTER 2025-02-27 09:45 | Outpatient (RCR) | payer OTHER, SELFPAY ==
--- NOTE | 2025-01-30 16:29 | PT.OPPOC ---
Physical, Occupational & Speech Therapy At [facility] Current Diagnoses Pain in right hip (01/30/25) Visit Care Team Role Provider Type Liang Rodrigues MD Attending Provider Physician Family Provider Primary Care Provider Referring Provider Specialty: Family Practice Address: [address] [place] [address], [address], [facility] Email: [email or web address] Plan Of Care PT OP: Lower Back/Lower Extremity Start: 01/30/25 16:10 Freq: Status: Active Protocol: Document 01/30/25 16:10 KW (Rec: 01/30/25 16:28 KW Laptop) Out-Patient Physical Therapy Visit Information Visit Information Visit Type Initial Evaluation Visit Start Time 15:15 Visit Stop Time 15:55 Visit Number 1 Progress Note Due 03/01/25 Evaluation Information Evaluation Date 01/30/25 Current Condition History of Current Condition Onset Date 6 months Current Complaints R hip/LBP History of Current 54 y/o breast CA survivor, 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 Onset Condition of R hip/low back pain that radiates down to her knee. Went to PCP, referred to PT for 6 visits before MRI Prior Treatments and Chiropractor Rx Tests Treatment Goals Patient/Caregiver be able to sleep without hip/LBP Goals Patient Questionnaires Lower Extremity Functional Scale LEFS Score 39 LEFS Impairment 40 to 59% Impaired (Score 32-47) OP-PT Pain Assessment Location R hip Pain Location R hip /low back Details Pain Intensity 5 Scale Used Numeric (0 - 10) Description Aching,Chronic,Pinching,Pulling,Sharp,Spasm,Stabbing, Tightness Frequency Frequent Pain Alleviating Cold Factors Pain Aggravating Position,ADL's,Activity,Standing,Walking,Stair Climbing Factors ,Bending,Lifting Balance Tests Single Limb Standing Single Limb- Right 10+ Single Limb- Left 10+ Functional Tests Five Times Sit to Stand Test Score 15 Comments pain, use of hands Manual Assessments Soft Tissue Assessment Soft Tissue Mobility tight and tender deep hip rotators, anterior hip Assessment flexors Joint Mobility Assessment Joint Mobility R femoral head superior/anterior translation Assessment OP Gait Assessment Comments Gait Comments antalgic Stair Climbing Evaluation Comments Stair Climbing use of railing Comments Posture Evaluation Position Standing Evaluation View Lateral L-Spine Posture Increased Lordosis Pelvis Posture Anteriorly Tilted Weight Distribution Weight Shifted Right Hip Posture (R) Externally Rotated Comments Posture Comments standing in poor structed sketchers Lumbar Spine Range of Motion Lumbar Spine Active Testing Position Standing Flexion 70 Extension 20 Rotation Left 15 Rotation Right 20 Lateral Flexion Left 25 Lateral Flexion 30 Right ROM Limitations Soft Tissue Tightness,Pain Hip Goniometric Range of Motion Hip Measured in Degrees right Hip ROM WFL No Testing Position Supine Flexion w/Knee 90 Flexed Straight Leg Raise 75 Extension 0 Abduction 20 Internal Rotation 5 External Rotation 15 Comments pain at endrange all motions Knee Goniometric Range of Motion Knee Measured in Degrees Right Knee ROM WFL Yes Trunk Strength Trunk Manual Muscle Testing Flexion 3+ Fair+ Extension 3+ Fair+ Rotation Left 3+ Fair+ Rotation Right 3+ Fair+ Lateral Flexion Left 3+ Fair+ Lateral Flexion 3+ Fair+ Right Core Stabilization POOR Comments Poor core strength breath holding patterns Hip Strength Hip Manual Muscle Testing Right Flexion (L2) 4+ Good+ Extension (S1) 4+ Good+ Abduction 4 Good Adduction 4 Good External Rotation 4 Good Internal Rotation 4 Good Knee Strength Knee Manual Muscle Testing Right Flexion (S2) 4 Good Extension (L3) 4- Good- Comments fatigable weakness knee extension Therapeutic Exercises Supine Exercises supine hip flexor stetch Side right Reps/Minutes 30 sec Comments L knee to chest Therapeutic Activity Therapeutic Activity 1 Comments review of [place] shoe list education in pillow under knees when sleeping supine educated on shifting wt back into left heel in standing and reaching Manual Therapy Treatment Consent Patient gave verbal Yes consent for manual treatment Soft Tissue Mobilization R hip Mobilization Type Instrument Assisted,Strain/Counterstrain,Sustained Pressure,Trigger Point Release Intensity/Depth Deep Body Position Sidelying Comments ITband, hipflexors Joint Mobilizations right hip Grade IV Body Position Hooklying Comments supine long leg traction and hooklying: inferior glide Self-Care/Home Management Treatment Education Patient Education Body Mechanics,Home Exercise Program,Joint Protection, Pain Management,Posture Other Education use of ice pack Physical Therapy Assessment Rehab Potential Rehabilitation Excellent Potential Evaluation Complexity Number of Personal 1-2 Factors/ Comorbidities Number of Body 3 Systems Impaired Clinical Stable Presentation at Evaluation Impairments Impairments Activity Tolerance,Functional Activities,Functional Mobility,Gait,Pain,Posture,ROM,Soft Tissue Mobility, Strength Goals Four Impairment poor CORE strength Short Term Goal (STG patient demonstrates good CORE strength 4/5 with ) stabilization program STG Duration 6 weeks Three Impairment poor shoe wear Short Term Goal (STG patient works shift in appropriate supportive shoes ) STG Duration 4 weeks Two Impairment pain with sleeping Short Term Goal (STG patient is able to sleep without hip pain, use of ) pillow under knees One Impairment lack of HEP Short Term Goal (STG patient will demonstrate indep and compliance with HEP ) for R hip pain Assessment Summary Assessment 54 yo female with R hip impingement and underlying poor CORE strength. She will benefit from skilled PT to address deficits and progress to meet PT goals, work and sleep pain free. Physical Therapy Plan Frequency and Duration Frequency of 1x/Week Treatment Duration of 6 treatment (weeks) Plan of Care Start 01/30/25 Date Plan of Care End 04/30/25 Date Next Visit Focus/Plan Next Note Type Treatment Note Next Visit Plan nu step shuttle CORE stabilization R hip mobs/STM Plan of Care Dates Plan of Care Start Date 01/30/25 Plan of Care End Date 04/30/25 Electronically Signed by: Marisol Hurley, PT 01/30/25 4525 If you are in agreement with this Plan of Care, please return a signed and dated copy. I have reviewed this Plan of Care and certify that the skilled therapy services above are required to meet the patient?s needs. Physician Signature Date Printed Name and Credentials Clinical Instructor Signature Printed Name and Credentials
--- NOTE | 2025-02-01 11:33 | PT.OTN ---
Current Diagnoses Pain in right hip (02/01/25) Physical Therapy Treatment Note PT OP: Lower Back/Lower Extremity Start: 01/30/25 16:10 Freq: Status: Active Protocol: Document 02/01/25 10:48 KW (Rec: 02/01/25 11:33 KW Laptop) Out-Patient Physical Therapy Visit Information Visit Information Visit Type Progress Note Visit Start Time 10:45 Visit Stop Time 11:25 Visit Number 2 Progress Note Due 03/01/25 Precautions Precautions none OP-PT Subjective Patient Comments Patient Comments working on standing on L leg/heel which has been helpful has been more aware of breathing patterns Cardio Equipment Recumbent Stepper (Sci-Fit) Duration (Minutes) 10 Resistance 3 Gym Equipment Shuttle Recovery Bilateral Squats Details 50#, 37# single Reps/Time 2 x 10 Shuttle Balance red Details AP ML Reps/Duration 2 x 10 Therapeutic Exercises Supine Exercises ball series Supine Exercise Name supine hamstring curls, bridge, LTR with ball Equipment Used small red/orange ball Reps/Minutes x 10 each Standing Exercises gastroc stretch Standing Exercise 30 sec x 3 Name Manual Therapy Treatment Consent Patient gave verbal Yes consent for manual treatment Soft Tissue Mobilization R hip Mobilization Type Instrument Assisted,Strain/Counterstrain,Sustained Pressure,Trigger Point Release Intensity/Depth Deep Body Position Sidelying Comments ITband, hipflexors Joint Mobilizations right hip Grade IV Body Position Hooklying Comments supine long leg traction and hooklying: inferior glide long leg traction lateral glide with belt Physical Therapy Assessment Goals Four Impairment poor CORE strength Short Term Goal (STG patient demonstrates good CORE strength 4/5 with ) stabilization program STG Duration 6 weeks Three Impairment poor shoe wear Short Term Goal (STG patient works shift in appropriate supportive shoes ) STG Duration 4 weeks Two Impairment pain with sleeping Short Term Goal (STG patient is able to sleep without hip pain, use of ) pillow under knees One Impairment lack of HEP Short Term Goal (STG patient will demonstrate indep and compliance with HEP ) for R hip pain Assessment Summary Assessment nice improvement in pain, ROM in just 2 visits, patient very pleased recommend massage therapy Physical Therapy Plan Frequency and Duration Frequency of 1x/Week Treatment Duration of 6 treatment (weeks) Plan of Care Start 01/30/25 Date Plan of Care End 04/30/25 Date Next Visit Focus/Plan Next Note Type Treatment Note Next Visit Plan nu step shuttle CORE stabilization R hip mobs/STM
--- NOTE | 2025-02-04 12:21 | PT.OTN ---
Current Diagnoses Pain in right hip (02/04/25) Physical Therapy Treatment Note PT OP: Lower Back/Lower Extremity Start: 01/30/25 16:10 Freq: Status: Active Protocol: Document 02/04/25 11:36 SP (Rec: 02/04/25 12:36 SP [id number]) Out-Patient Physical Therapy Visit Information Visit Information Visit Type Treatment Note Visit Start Time 11:36 Visit Stop Time 12:21 Visit Number 3 Number of EARLY INTERVENTIONIST Visits 1 Progress Note Due 03/01/25 Precautions Precautions none OP-PT Subjective Patient Comments Patient Comments Pt reports felt pretty good after last tx until went to bed at inner and anterior R thigh and across back. She stated did some leg lengthener. Pt in past before PT did a self prone leg drapped off Edge bed and did help but not long lasting. Cardio Equipment Recumbent Stepper (Sci-Fit) Duration (Minutes) 7 Resistance 3 Seat Position 10 Other BUEs & BLEs 44-46 RPMs Gym Equipment Shuttle Recovery Bilateral Squats Details 50# (2 navy), 37# single (1 navy) Reps/Time Venancio 20- reps, Single 15 reps each Therapeutic Exercises Supine Exercises SKTC Stretch Supine Exercise Name Reviewed Side bilateral Equipment Used grasp knee to thigh Reps/Minutes 30sec hold Comments ed breath Piriformis Stretch Supine Exercise Name added to HEP declined HO Side bilateral Resistance R>L Equipment Used manual> ed self use towel support Reps/Minutes 60 sec hold Comments cued gentle supine hip flexor stetch Supine Exercise Name added to HEP declined HO Equipment Used leg off table Reps/Minutes 30 sec Comments cue TA/PPT needed, opp LE bent- good hip flex stretch, breathing Standing Exercises gastroc stretch Standing Exercise verbal review for ankle mobility-is performing Name Reps/Minutes 30 sec x 3 Gait Training Gait Activity Stair Mgt Description able reciprocal now but weakness and pain on R need rail Device Used light rail on L Level of Assistance Mod I Distance/Duration 2 laps, decreased stance time on RLE Treatment Focus assess self mgt/support needed 01/1825 Comments asc& desc Manual Therapy Treatment Consent Patient gave verbal Yes consent for manual treatment Soft Tissue Mobilization R hip Mobilization Type Instrument Assisted,Rolling,Sustained Pressure Intensity/Depth Deep Body Position Sidelying Comments manual and rolling pin with ed self, ITband, hip flexors, glut med, piriformis Joint Mobilizations right hip Joint R- with towel under belt Grade III Body Position Hooklying Comments lateral glide, posterolateral (piriformis position)- more pressure on thigh than stretch so stopped Self-Care/Home Management Treatment Education Patient Education Body Mechanics,Home Exercise Program,Joint Protection, Pain Management,Posture Other Education discussion Side and back sleeping pillow/bolter between BLEs and under thighs hooklying for hip/pelvic alignment, states hasn't gotten use to it yet. Ed anatomy for self stretching and importance incorporate strengthening future appt. Physical Therapy Assessment Goals Four Impairment poor CORE strength Short Term Goal (STG patient demonstrates good CORE strength 4/5 with ) stabilization program STG Duration 6 weeks Three Impairment poor shoe wear Short Term Goal (STG patient works shift in appropriate supportive shoes ) STG Duration 4 weeks Two Impairment pain with sleeping Short Term Goal (STG patient is able to sleep without hip pain, use of ) pillow under knees One Impairment lack of HEP Short Term Goal (STG patient will demonstrate indep and compliance with HEP ) for R hip pain Assessment Summary Assessment Pt good response to manual of R hip today and ed ball roll on wall but not performed today, verbal understanding. Good response to gentle stretching, declined HOs and end tx added hip abd strengthening clamshell with HO- cues for set up and direction performance- good tiring response. Physical Therapy Plan Frequency and Duration Frequency of 1x/Week Treatment Duration of 6 treatment (weeks) Plan of Care Start 01/30/25 Date Plan of Care End 04/30/25 Date Next Visit Focus/Plan Next Note Type Treatment Note Next Visit Plan Recheck HEP as needed. POC: nu step/Scifit shuttle recovery & Balance CORE stabilization R hip mobs/STM Next add glut strength for reciprocal asc/desc stairs, self ankle mobes
--- NOTE | 2025-02-07 11:45 | PT.OTN ---
Current Diagnoses Pain in right hip (02/07/25) Physical Therapy Treatment Note PT OP: Lower Back/Lower Extremity Start: 01/30/25 16:10 Freq: Status: Active Protocol: Document 02/07/25 11:41 KW (Rec: 02/07/25 11:45 KW Laptop) Out-Patient Physical Therapy Visit Information Visit Information Visit Type Treatment Note Visit Start Time 11:30 Visit Stop Time 12:10 Visit Number 4 Number of DIRECTOR BIOSTATISTICS Visits 1 Progress Note Due 03/01/25 Precautions Precautions none OP-PT Subjective Patient Comments Patient Comments feeling an improvement in her hip can't always reach down but definite improvement getting out of car at end of work shift, no longer feels 90 Patient Questionnaires Lower Extremity Functional Scale LEFS Score 39 LEFS Impairment 40 to 59% Impaired (Score 32-47) Cardio Equipment Recumbent Stepper (Sci-Fit) Duration (Minutes) 10 Resistance 3 Seat Position 10 Other BUEs & BLEs 44-46 RPMs Gym Equipment Shuttle Recovery Bilateral Squats Details 50# (2 navy), 37# single (1 navy) Reps/Time Venancio 20- reps, Single 15 reps each Shuttle Balance red Details AP ML Reps/Duration 2 x 10 Therapeutic Exercises Supine Exercises SKTC Stretch Supine Exercise Name Reviewed Side bilateral Equipment Used grasp knee to thigh Reps/Minutes 30sec hold Comments ed breath Piriformis Stretch Supine Exercise Name added to HEP declined HO Side bilateral Resistance R>L Equipment Used manual> ed self use towel support Reps/Minutes 60 sec hold Comments cued gentle ball series Supine Exercise Name supine hamstring curls, bridge, LTR with ball Equipment Used small red/orange ball Reps/Minutes x 10 each supine hip flexor stetch Supine Exercise Name added to HEP declined HO Equipment Used leg off table Reps/Minutes 30 sec Comments cue TA/PPT needed, opp LE bent- good hip flex stretch, breathing Standing Exercises gastroc stretch Standing Exercise verbal review for ankle mobility-is performing Name Reps/Minutes 30 sec x 3 Therapeutic Activity Therapeutic Activity 1 Comments re-education: education in pillow under knees when sleeping supine educated on shifting wt back into left heel in standing and reaching Manual Therapy Treatment Consent Patient gave verbal Yes consent for manual treatment Soft Tissue Mobilization R hip Mobilization Type Instrument Assisted,Rolling,Sustained Pressure Intensity/Depth Deep Body Position Sidelying Comments manual and rolling pin with ed self, ITband, hip flexors, glut med, piriformis Joint Mobilizations right hip Joint R- with towel under belt Grade III Body Position Hooklying Comments lateral glide, posterolateral (piriformis position)- more pressure on thigh than stretch so stopped Self-Care/Home Management Treatment Education Patient Education Body Mechanics,Home Exercise Program,Joint Protection, Pain Management,Posture Physical Therapy Assessment Goals Four Impairment poor CORE strength Short Term Goal (STG patient demonstrates good CORE strength 4/5 with ) stabilization program STG Duration 6 weeks Three Impairment poor shoe wear Short Term Goal (STG patient works shift in appropriate supportive shoes ) STG Duration 4 weeks Two Impairment pain with sleeping Short Term Goal (STG patient is able to sleep without hip pain, use of ) pillow under knees One Impairment lack of HEP Short Term Goal (STG patient will demonstrate indep and compliance with HEP ) for R hip pain Assessment Summary Assessment making small and steady gains Physical Therapy Plan Frequency and Duration Frequency of 1x/Week Treatment Duration of 6 treatment (weeks) Plan of Care Start 01/30/25 Date Plan of Care End 04/30/25 Date Next Visit Focus/Plan Next Note Type Treatment Note Next Visit Plan Recheck HEP as needed. POC: nu step/Scifit shuttle recovery & Balance CORE stabilization R hip mobs/STM ( FOR DIRECTOR BIOSTATISTICS SESSION: Next add glut strength for reciprocal asc/desc stairs, self ankle mobes)
--- NOTE | 2025-02-20 09:49 | PT.OTN ---
Addendum entered and electronically signed by Ora Bhandari PTA 02/21/25 16:49: Pt good video of CREDIT REVIEW MANAGER helping anchor band indoor then how to wrap band around her ankle for self carryover performance home and self benefits of decrease hip and ankle discomfort. Original Note: Current Diagnoses Pain in right hip (02/20/25) Physical Therapy Treatment Note PT OP: Lower Back/Lower Extremity Start: 01/30/25 16:10 Freq: Status: Active Protocol: Document 02/20/25 09:07 SP (Rec: 02/20/25 09:51 SP [id number]) Out-Patient Physical Therapy Visit Information Visit Information Visit Type Treatment Note Visit Start Time 09:07 Visit Stop Time 09:49 Visit Number 5 Number of CREDIT REVIEW MANAGER Visits 1 Progress Note Due 03/01/25 Precautions Precautions none OP-PT Subjective Patient Comments Patient Comments Pt reports getting around feeling like there is fluid in R hip joint causing irritation but then goes right back out again. Comes and goes. She stated can do long leg pull stretching if family members help her but challenged by getting someone else to pull her leg for self traction. She requested during today's visit, can we help come up a way to do this at home herself. ALso thoughts on inversion table. She said needs her leg distracted/ pull/traction more toward end of day. After PT last tx, slept much better and useing pillows under knees hooklying for comfort support. Cardio Equipment Recumbent Stepper (Sci-Fit) Duration (Minutes) 8 Resistance 3 Seat Position 10 Other BUEs & BLEs 44-46 RPMs Therapeutic Activity Therapeutic Activity Self LE traction for home Name Lvl 4>5 TB latex (wrapped around L ankle) Reps/Minutes Extensive treatment time Comments Instruction theraband around ankle, anchored in door 25 -26 inches (65cm) from floor, close lock door, then lay on floor scoot away from door to feel comfortable self long axis traction. Good feedback response. Pt challenged with getting TB wrap around ankle and anchoring in door. 1 Name Discussion review Comments re-education: education in pillow under knees when sleeping supine educated on shifting wt back into left heel in standing and reaching Manual Therapy Treatment Consent Patient gave verbal Yes consent for manual treatment Manual Traction R hip Details R hip: long axis pull (discuss family assist/self) Body Position hookyling Comments manual with ed self use theraband anchored in door. Grade II-III Physical Therapy Assessment Goals Four Impairment poor CORE strength Short Term Goal (STG patient demonstrates good CORE strength 4/5 with ) stabilization program STG Duration 6 weeks Three Impairment poor shoe wear Short Term Goal (STG patient works shift in appropriate supportive shoes ) STG Duration 4 weeks Two Impairment pain with sleeping Short Term Goal (STG patient is able to sleep without hip pain, use of ) pillow under knees One Impairment lack of HEP Short Term Goal (STG patient will demonstrate indep and compliance with HEP ) for R hip pain Assessment Summary Assessment Pt good feedback response to manual, considerably decreased R hip pain with long axis R leg manual traction, reports challenged finding family members that can help. CREDIT REVIEW MANAGER spent extensive time instructing pt and pt performance various resistance bands and way to perform self long axis leg traction with band anchored in door. She reports good feedback results of decreased hip pain but pt has limited hip and trunk flexion mobililty to get band anchored indoor and wrapping band around ankle in long sitting on floor. Will continue to find positional benefits. Physical Therapy Plan Frequency and Duration Frequency of 1x/Week Treatment Duration of 6 treatment (weeks) Plan of Care Start 01/30/25 Date Plan of Care End 04/30/25 Date Next Visit Focus/Plan Next Note Type Treatment Note Next Visit Plan Interventions utilized/selected as per assessment in POC on eval 01/30/25. PT to update POC. (FOR CREDIT REVIEW MANAGER SESSION: Next add glut strength for reciprocal asc/desc stairs, self ankle mobes) Recheck HEP as needed. POC: nu step/Scifit shuttle recovery & Balance CORE stabilization R hip mobs/STM
--- NOTE | 2025-02-27 10:01 | PT.OPDS ---
Current Diagnoses Pain in right hip (02/27/25) Visit Care Team Role Provider Type Liang Rodrigues MD Attending Provider Physician Family Provider Primary Care Provider Referring Provider Specialty: Family Practice Address: [address] [place] [address], [address], [place], [address] Email: [email or web address] Visit Number Visit Number 6 Discharge Summary PT OP: Lower Back/Lower Extremity Start: 01/30/25 16:10 Freq: Status: Active Protocol: Document 02/27/25 09:48 KW (Rec: 02/27/25 10:00 KW Laptop) Out-Patient Physical Therapy Visit Information Visit Information Visit Type Discharge Summary Visit Start Time 09:45 Visit Stop Time 09:55 Visit Number 6 Number of ELECTION WATCHER Visits 1 Progress Note Due 03/29/25 Precautions Precautions none OP-PT Subjective Patient Comments Patient Comments feels ready to DC to HEP is considering injection, MRI, inversion table for traction Patient Questionnaires Lower Extremity Functional Scale LEFS Score 62 LEFS Impairment 40 to 59% Impaired (Score 32-47) OP-PT Pain Assessment Location R hip Pain Location R hip /low back Details Pain Intensity 3 Scale Used Numeric (0 - 10) Description Aching,Chronic,Pinching,Pulling,Sharp,Spasm,Stabbing, Tightness Frequency Frequent Pain Alleviating Cold Factors Pain Aggravating Position,ADL's,Activity,Standing,Walking,Stair Climbing Factors ,Bending,Lifting Manual Assessments Soft Tissue Assessment Soft Tissue Mobility tight and tender deep hip rotators, anterior hip Assessment flexors - improved Joint Mobility Assessment Joint Mobility R femoral head superior/anterior translation - improved Assessment OP Gait Assessment Comments Gait Comments antalgic - improved Hip Goniometric Range of Motion Hip right Hip ROM WFL No Testing Position Supine Flexion w/Knee 95 Flexed Straight Leg Raise 80 Extension 0 Abduction 20 Internal Rotation 7 External Rotation 20 Comments pain at endrange all motions - improved Cardio Equipment Recumbent Stepper (Sci-Fit) Duration (Minutes) 10 Resistance 3 Seat Position 10 Other BUEs & BLEs 44-46 RPMs Gym Equipment Shuttle Recovery Bilateral Squats Details 50# (2 navy), 37# single (1 navy) Reps/Time Venancio 20- reps, Single 15 reps each Shuttle Balance red Details AP ML Reps/Duration 2 x 10 Therapeutic Ball supine series Exercise Details hamstring curls, LTR, bridge x 12 each Therapeutic Exercises Supine Exercises SKTC Stretch Side bilateral Equipment Used grasp knee to thigh Reps/Minutes 30sec hold Comments ed breath Piriformis Stretch Side bilateral Resistance R>L Equipment Used manual> ed self use towel support Reps/Minutes 60 sec hold Comments cued gentle ball series Supine Exercise Name supine hamstring curls, bridge, LTR with ball Equipment Used small red/orange ball Reps/Minutes x 10 each supine hip flexor stetch Equipment Used leg off table Reps/Minutes 30 sec Comments cue TA/PPT needed, opp LE bent- good hip flex stretch, breathing Standing Exercises gastroc stretch Reps/Minutes 30 sec x 3 Manual Therapy Treatment Consent Patient gave verbal Yes consent for manual treatment Soft Tissue Mobilization R hip Mobilization Type Instrument Assisted,Rolling,Sustained Pressure Intensity/Depth Deep Body Position Sidelying Comments manual and rolling pin with ed self, ITband, hip flexors, glut med, piriformis Joint Mobilizations right hip Joint R- with towel under belt Grade III Body Position Hooklying Comments lateral glide, posterolateral (piriformis position)- more pressure on thigh than stretch so stopped Manual Traction R hip Details R hip: long axis pull (discuss family assist/self) Body Position hookyling Comments manual with ed self use theraband anchored in door. Grade II-III Physical Therapy Assessment Goals Four Impairment poor CORE strength Short Term Goal (STG patient demonstrates good CORE strength 4/5 with ) stabilization program - MET STG Duration 6 weeks Three Impairment poor shoe wear Short Term Goal (STG patient works shift in appropriate supportive shoes - ) MET, has new orthotics STG Duration 4 weeks Two Impairment pain with sleeping Short Term Goal (STG patient is able to sleep without hip pain, use of ) pillow under knees - 50% improved One Impairment lack of HEP Short Term Goal (STG patient will demonstrate indep and compliance with HEP ) for R hip pain - MET Assessment Summary Assessment appropriate for DC to HEP, on going chiro and massage welcome to come back to PT with a new referral as needed Physical Therapy Plan Discharge Physical Therapy Discharge Reasons Goals Met
== END 2025-02-28 13:28 | disposition home or self-care (01) ==
LOC: PHYS 09:45
PROVIDERS: Family Provider Family Medicine; PCP Family Medicine; Referring Provider Family Medicine; Visit Provider Family Medicine
DX: M25.551 Pain in right hip (principal)
CPT/HCPCS: 97110; 97140; 97162; 97530; 97535